=== PATIENT | female | born 1990 | race Caucasian/White ===

== ENCOUNTER → 2016-07-22 | Outpatient (CLI) | payer BC | LOC: MERGE 20:00 → RAD 20:30 | PROVIDERS: ATTEND Internal Medicine Endocrinology, Diabetes & Metabolism | DX: E22.1 Hyperprolactinemia (principal) | CPT/HCPCS: 70553; A9577 ==

== ENCOUNTER 2017-12-07 11:10 | Outpatient (CLI) | payer BC ==
[2017-12-07 12:15] LABS: ABSOLUTE EOSINOPHILS # (AUTO) 0.1 10^3/uL (0.0-0.6); ABSOLUTE LYMPHOCYTES (AUTO) 1.4 10^3/uL (0.5-4.7); ABSOLUTE MONOCYTES (AUTO) 0.6 10^3/uL (0.1-1.4); ABSOLUTE NEUT (AUTO) 6.8 10^3/uL (1.7-8.2); BASOPHILS % (AUTO) 0.2 % (0-2); HEMATOCRIT 29.3 % (36.0-47.0); HEMOGLOBIN 10.1 g/dL (12.0-15.5); LYMPHOCYTES % (AUTO) 16.1 % (13-45); MEAN CORPUSCULAR HEMOGLOBIN 30.5 pg (27.0-33.4); MEAN CORPUSCULAR HGB CONC 34.6 g/dL (32.0-36.0); MEAN CORPUSCULAR VOLUME 88 fl (80-97); MONOCYTES % (AUTO) 6.2 % (3-13); PLATELET COUNT 189 10^3/uL (150-450); RED BLOOD COUNT 3.32 10^6/uL (3.72-5.28); RED CELL DISTRIBUTION WIDTH 13.6 % (11.5-14.0); SEGMENTED NEUTROPHILS % (AUTO) 76.5 % (42-78); TOTAL CELLS COUNTED % (AUTO) 100 %; WHITE BLOOD COUNT 8.9 10^3/uL (4.0-10.5)
[2017-12-07 12:25] LABS: APPEARANCE,URINE CLOUDY; BILIRUBIN,URINE NEGATIVE (NEGATIVE); COLOR,URINE YELLOW; GLUCOSE, URINE NEGATIVE (NEGATIVE); KETONES,URINE NEGATIVE (NEGATIVE); LEUKOCYTE ESTERASE,URINE SMALL (NEGATIVE); NITRITE,URINE NEGATIVE (NEGATIVE); PROTEIN,URINE NEGATIVE (NEGATIVE); URIC ACID CRYSTALS,URINE MANY /HPF; URINE SPECIFIC GRAVITY 1.026; UROBILINOGEN,URINE NEGATIVE mg/dL (<2.0)
--- NOTE | 2017-12-07 12:27 | Non Stress Test Report ---
Non Stress Test Datetime Report Generated by CPN: 12/07/2017 12:27 DEMOGRAPHIC EGA NST: 36.3 EGA NST: 37.3 INDICATION Indication for Study: Ordered by Provider Indication for Study: Ordered by Provider Indication for Study (NST) Other: b/p check Indication for Study (NST) Other: PRE-E W/U MONITORING Monitor Explained: Monitor Explained; Test Explained; Patient Verbalized Understanding Monitor Explained: Monitor Explained; Test Explained; Patient Verbalized Understanding Time on Monitor: 11/30/2017 12:13 Time on Monitor: 12/07/2017 11:35 Time off Monitor: 12/07/2017 12:26 NST Duration: 51 NST INTERVENTIONS NST Interventions: PO Hydration; Reposition Patient NST Interventions: PO Hydration; Reposition Patient Physician Notified NST: Dr Glez Physician Notified NST: [place] BABY A: [id number] BABY A Movement : Present Movement : Present Contraction Frequency : rare Contraction Frequency : irr FHR Baseline : 145 FHR Baseline : 145 Accelerations : 15X15 Accelerations : 15X15 Decelerations : None Decelerations : None Variability : Moderate 6-25bpm Variability : Moderate 6-25bpm NST Review: Meets Criteria for Reactive NST NST Review: Meets Criteria for Reactive NST NST Review and Verified By : Nickie Lino RN NST Results: Reactive NST Results: Reactive NST REPORT Report Trigger: Send Report
[2017-12-07 12:40] LABS: UR PRO/CREAT RATIO RESULT 0.1 mg/mg (0.0-0.2); URINE CREATININE 164.7 mg/dL (16-327)
[2017-12-07 12:50] LABS: ALANINE AMINOTRANSFERASE 17 U/L (9-52); ALBUMIN 2.8 g/dL (3.5-5.0); ALKALINE PHOSPHATASE 109 U/L (38-126); ANION GAP 11 (5-19); ASPARTATE AMINO TRANSFERASE 14 U/L (14-36); BILIRUBIN,DIRECT 0.2 mg/dL (0.0-0.4); BILIRUBIN,TOTAL 0.3 mg/dL (0.2-1.3); BLOOD UREA NITROGEN 9 mg/dL (7-20); CALCIUM 9.4 mg/dL (8.4-10.2); CARBON DIOXIDE 22 mmol/L (22-30); CHLORIDE 105 mmol/L (98-107); GLUCOSE 109 mg/dL (75-110); POTASSIUM 3.4 mmol/L (3.6-5.0); SODIUM 137.9 mmol/L (137-145); TOTAL PROTEIN 5.6 g/dL (6.3-8.2); URIC ACID 3.7 mg/dL (2.5-6.2)
[2017-12-07 12:54] LABS: URINE AMPHETAMINES SCREEN NEGATIVE; URINE BARBITURATES SCREEN NEGATIVE; URINE BENZODIAZEPINES SCREEN NEGATIVE; URINE COCAINE SCREEN NEGATIVE; URINE MARIJUANA (THC) SCREEN NEGATIVE; URINE METHADONE SCREEN NEGATIVE; URINE PHENCYCLIDINE SCREEN NEGATIVE
== END 2017-12-07 13:48 | disposition home or self-care (01) ==
LOC: LC 11:10
PROVIDERS: ATTEND Obstetrics & Gynecology
PROC: 4A1HXCZ Monitoring of Products of Conception, Cardiac Rate, External Approach (ICD-10-PCS; principal; 2017-12-07)
DX: O16.3 Unspecified maternal hypertension, third trimester (principal); Z3A.37 37 weeks gestation of pregnancy
CPT/HCPCS: 36415; 59025; 80053; 80307; 81001; 82570; 83615; 84156; 84550; 85025

== ENCOUNTER 2017-12-18 00:45 | Outpatient (CLI) | payer BC ==
[2017-12-18 01:24] LABS: APPEARANCE,URINE CLEAR; BILIRUBIN,URINE NEGATIVE (NEGATIVE); COLOR,URINE YELLOW; GLUCOSE, URINE NEGATIVE (NEGATIVE); KETONES,URINE NEGATIVE (NEGATIVE); LEUKOCYTE ESTERASE,URINE NEGATIVE (NEGATIVE); NITRITE,URINE NEGATIVE (NEGATIVE); PROTEIN,URINE NEGATIVE (NEGATIVE); URINE SPECIFIC GRAVITY 1.018
[2017-12-18 01:39] LABS: URINE AMPHETAMINES SCREEN NEGATIVE; URINE BARBITURATES SCREEN NEGATIVE; URINE BENZODIAZEPINES SCREEN NEGATIVE; URINE COCAINE SCREEN NEGATIVE; URINE MARIJUANA (THC) SCREEN NEGATIVE; URINE METHADONE SCREEN NEGATIVE; URINE PHENCYCLIDINE SCREEN NEGATIVE
[2017-12-18] MEDS ORDERED: ONDANSETRON HCL 8 MG TABLET ONE (01:43)
--- NOTE | 2017-12-18 02:17 | Non Stress Test Report ---
Non Stress Test Datetime Report Generated by CPN: 12/18/2017 02:17 DEMOGRAPHIC EGA NST: 39.0 INDICATION Indication for Study: Ordered by Provider; Other Indication for Study (NST) Other: Dr. Cano-Waqas URINE RESULTS Urine Protein, NST: Negative Urine Ketones - NST: Negative Urine Glucose - NST: Negative Urine Blood - NST: Negative MONITORING Monitor Explained: Monitor Explained; Test Explained; Patient Verbalized Understanding Time on Monitor: 12/18/2017 01:13 Time off Monitor: 12/18/2017 01:45 NST Duration: 32 NST INTERVENTIONS NST Interventions: PO Hydration Physician Notified NST: LC BABY A: [id number] BABY A Movement : Present Contraction Frequency : none FHR Baseline : 145 Accelerations : 15X15 Decelerations : None Variability : Moderate 6-25bpm NST Review: Meets Criteria for Reactive NST NST Review and Verified By : yfn oquendo NST Results: Reactive NST REPORT Report Trigger: Send Report
== END 2017-12-18 02:00 | disposition home or self-care (01) ==
LOC: LC 00:45
PROVIDERS: ATTEND Obstetrics & Gynecology
PROC: 4A1HXCZ Monitoring of Products of Conception, Cardiac Rate, External Approach (ICD-10-PCS; principal; 2017-12-18)
DX: O47.1 False labor at or after 37 completed weeks of gestation (principal); Z3A.39 39 weeks gestation of pregnancy
CPT/HCPCS: 59025; 81005; 80307; 84112; S0119

== ENCOUNTER 2017-12-21 06:57 | Inpatient (IN) | payer BC ==
[2017-12-20 13:30] LABS: APPEARANCE,URINE CLOUDY; BILIRUBIN,URINE NEGATIVE (NEGATIVE); COLOR,URINE YELLOW; GLUCOSE, URINE NEGATIVE (NEGATIVE); KETONES,URINE NEGATIVE (NEGATIVE); LEUKOCYTE ESTERASE,URINE NEGATIVE (NEGATIVE); NITRITE,URINE NEGATIVE (NEGATIVE); PROTEIN,URINE NEGATIVE (NEGATIVE); URINE SPECIFIC GRAVITY 1.006; UROBILINOGEN,URINE NEGATIVE mg/dL (<2.0)
[2017-12-20 13:31] LABS: ABSOLUTE EOSINOPHILS # (AUTO) 0.1 10^3/uL (0.0-0.6); ABSOLUTE LYMPHOCYTES (AUTO) 1.5 10^3/uL (0.5-4.7); ABSOLUTE MONOCYTES (AUTO) 0.5 10^3/uL (0.1-1.4); ABSOLUTE NEUT (AUTO) 4.8 10^3/uL (1.7-8.2); BASOPHILS % (AUTO) 0.4 % (0-2); EOSINOPHILS % (AUTO) 0.9 % (0-6); HEMATOCRIT 33.3 % (36.0-47.0); HEMOGLOBIN 11.2 g/dL (12.0-15.5); LYMPHOCYTES % (AUTO) 21.3 % (13-45); MEAN CORPUSCULAR HEMOGLOBIN 29.4 pg (27.0-33.4); MEAN CORPUSCULAR HGB CONC 33.7 g/dL (32.0-36.0); MEAN CORPUSCULAR VOLUME 87 fl (80-97); MONOCYTES % (AUTO) 6.8 % (3-13); PLATELET COUNT 196 10^3/uL (150-450); RED BLOOD COUNT 3.81 10^6/uL (3.72-5.28); SEGMENTED NEUTROPHILS % (AUTO) 70.6 % (42-78); TOTAL CELLS COUNTED % (AUTO) 100 %; WHITE BLOOD COUNT 6.9 10^3/uL (4.0-10.5)
[2017-12-20 14:01] LABS: URINE AMPHETAMINES SCREEN NEGATIVE; URINE BARBITURATES SCREEN NEGATIVE; URINE BENZODIAZEPINES SCREEN NEGATIVE; URINE COCAINE SCREEN NEGATIVE; URINE MARIJUANA (THC) SCREEN NEGATIVE; URINE METHADONE SCREEN NEGATIVE; URINE PHENCYCLIDINE SCREEN NEGATIVE
--- NOTE | 2017-12-20 23:15 | EKG REPORT ---
SEVERITY:- NORMAL ECG - SINUS RHYTHM : Confirmed by: Sarah Chauhan 20-Dec-2017 23:13:55
[~2017-12-21 06:57] MED LIST: CEFAZOLIN 2 GM/D5W RTU 2 GM/50 ML RTUPB IV SCH
[2017-12-21] MEDS ORDERED: RINGERS SOLUTION,LACTATED 1,000 ML IV ONE (08:45)
[2017-12-21] MEDS ORDERED: CEFAZOLIN 2 GM/D5W RTU 2 GM/50 ML RTUPB IV ONE (09:18)
[2017-12-21] MEDS ORDERED: OXYTOCIN 10 UNIT/ML VIAL ONE (09:29)
[2017-12-21] MEDS ORDERED: BUPIVACAINE HCL/DEX-WATER/PF 15 MG/2 ML AMPULE ONE (09:46)
[2017-12-21] MEDS ORDERED: MORPHINE SULFATE 10 MG/ML INJ IV PRN (10:31)
[2017-12-21] MEDS ORDERED: PROMETHAZINE HCL INJ 25 MG/1 ML VIAL IV PRN ×2 (10:31→10:52)
[2017-12-21] MEDS ORDERED: MEPERIDINE HCL/PF INJ 25 MG/1 ML DISP.SYRIN IV PRN (10:31)
[2017-12-21] MEDS ORDERED: FENTANYL CITRATE INJ/PF 100 MCG/2 ML AMPUL IV PRN ×3 (10:31)
[2017-12-21] MEDS ORDERED: DIPHENHYDRAMINE HCL 50 MG/ML VIAL IV PRN (10:31)
[2017-12-21] MEDS ORDERED: ONDANSETRON HCL INJ/PF 4 MG/2 ML SDV IV PRN (10:31)
--- NOTE | 2017-12-21 10:48 | PDOC DELIVERY SUMMARY ---
Delivery Summary - Maternal Hx : III Hx # Term Pregnancies: 1 Hx # Pregnancies: 1 JAMILA: 12/22/17 Gestational Age: 39 Ruptured Membranes: AROM Time of Rupture: 10:09 Fluids: Clear - Delivery Presentation: Vertex Heart Rate Monitoring: Done Pre-Operatively Support Person Present: Yes Location: OR : Scheduled Placenta: Within Normal Limits Delivery of Placenta Date: 12/21/17 Delivery of Placenta Time: 10:11 - Medications Type of Anesthesia:: Spinal - Assess and Care Male Delivery of Date: 12/21/17 Delivery of Infant Time: 10:10 at 1 minute: 9 at 5 minutes: 9 Preprinted Number On Band: [id number] Infant Skin to Skin: Yes Skin to Skin (Mins): 6 To Nursery At: 10:23 Mode of Transport: Bassinet Delivery Weight: 3,350 Infant Delivery Length: 20.5 in - Delivery Personnel Nursery RN: CLINTON DAVIS RN: SALMA OAKES MD: CHARLI MARCUM
[2017-12-21] MEDS ORDERED: EPHEDRINE SULFATE INJ 50 MG/1 ML AMPULE ONE (10:50)
--- NOTE | 2017-12-21 10:51 | Operative Report ---
Operative Report DATE OF SURGERY: 12/21/17 PREOPERATIVE DIAGNOSIS: Patient desires a repeat and tubal ligation POSTOPERATIVE DIAGNOSIS: Same OPERATION: Repeat via low transverse uterine incision rivera with Filshie clips SURGEON: CHARLI MARCUM ANESTHESIA: Spinal TISSUE REMOVED OR ALTERED: Placenta COMPLICATIONS: None ESTIMATED BLOOD LOSS: 250 cc INTRAOPERATIVE FINDINGS: Viable male infant, normal tubes and ovaries PROCEDURE: Patient was taken to the OR and placed in supine position after her spinal anesthesia. She is prepared and draped in sterile fashion. Rene was placed for drainage of the bladder. Low transverse incision was made excising the old scar and carried down the level of the fascia. The fascial incision was made with knife and extended bilaterally with curved Lin scissors. The fascia was off the rectus muscles using sharp and blunt dissection. The rectus muscles are in the midline. The peritoneum was entered without incident. Bladder blade was placed in uterine segment was identified. A low transverse incision was made creating a bladder flap. Bladder blade was placed low transverse uterine incision was made with the knife and extended with fingertips. The baby was delivered with some fundal pressure. Double nuchal cord noted. Mouth and nose were suctioned free. The cord is doubly clamped and cut. Baby is passed off to the media arts professor in attendance. The placenta was manually extracted with trailing membranes. The uterus was externalized wrapped in a moist lap sponge. Uterine contents wiped free. Uterus was closed with a running locking layer of 0 chromic suture using the second layer to imbricate the first completing a double layer closure of the uterus. The serosa was closed with a running 2-0 chromic stitch. Each fallopian tube was identified by its fimbriated end and Filshie clip placed at the mid isthmic portion. The pelvis was irrigated and suctioned free of fluid the uterus was replaced in the abdomen. The abdominal wall peritoneum was closed with running 2-0 chromic stitch. Fascia was closed with a running 0 Vicryl in 2 segments. Steven's layer was brought together with 0 plain gut stitch and the skin was closed with running subcuticular 4-0 undyed Vicryl stitch. Skin coco were placed to reinforce the incision. The wound was dressed mother and baby did well.
[2017-12-21] MEDS ORDERED: SIMETHICONE 80 MG TAB.CHEW PO PRN (10:52)
[2017-12-21] MEDS ORDERED: ACETAMINOPHEN 325 MG TABLET PO PRN (10:52)
[2017-12-21] MEDS ORDERED: OXYTOCIN/NORMAL SALINE 20 UNIT/1,000 ML RTUINJ IV PRN (10:52)
[2017-12-21] MEDS ORDERED: MEASLES,MUMPS&RUBELLA VACC/PF 0.5 ML VIAL SUBCUT PRN (10:52)
[2017-12-21] MEDS ORDERED: OXYCODONE-ACETAMINOPHEN 5-325 MG TABLET PO PRN (10:52)
[2017-12-21] MEDS ORDERED: DIPH/PERTUSS(ACELL)/TETANUS VAC/PF 0.5 ML SYR (>=10YO) IM PRN (10:52)
[2017-12-21] MEDS ORDERED: PROMETHAZINE HCL INJ 25 MG/1 ML VIAL ONE (11:07)
[2017-12-21] MEDS ORDERED: ACETAMINOPHEN 1,000 MG/100 ML RTUPB IV ONE (11:33)
[2017-12-21] MEDS ORDERED: MORPHINE SULFATE 10 MG/ML INJ ONE (11:33)
[2017-12-21] MEDS ORDERED: IBUPROFEN 800 MG TABLET PO SCH (12:00)
[2017-12-21] MEDS ORDERED: HYDROMORPHONE HCL INJ/PF 2 MG/ML AMPULE ONE (12:02)
[2017-12-21] MEDS: HYDROMORPHONE HCL INJ/PF 2 MG/ML AMPULE IV PRN ×3 (12:04→20:53)
[2017-12-21] MEDS: RINGERS SOLUTION,LACTATED 1,000 ML IV PRN ×2 (12:46→20:53)
[2017-12-21] MEDS: KETOROLAC TROMETHAMINE INJ/PF 30 MG/1 ML SDV IV SCH ×2 (13:45→22:17)
[2017-12-21] MEDS: OXYCODONE-ACETAMINOPHEN 5-325 MG TABLET PO PRN ×2 (17:46→22:53)
[2017-12-21] MEDS: DOCUSATE SODIUM 100 MG CAPSULE PO SCH (17:47)
--- NOTE | 2017-12-21 18:29 | EKG REPORT ---
SEVERITY:- NORMAL ECG - SINUS RHYTHM : Confirmed by: Sarah Chauhan 21-Dec-2017 18:29:22
[2017-12-21] MEDS ORDERED: METOCLOPRAMIDE HCL 10 MG TABLET PO PRN (19:14)
[2017-12-21] MEDS ORDERED: PHENYLEPHRINE HCL INJ/PF 10 MG/1 ML SDV ONE (22:49)
[2017-12-21] MEDS ORDERED: ONDANSETRON HCL INJ/PF 4 MG/2 ML SDV ONE (22:49)
[2017-12-21] MEDS ORDERED: METOCLOPRAMIDE HCL INJ/PF 10 MG/2 ML SDV ONE (22:49)
[2017-12-22] MEDS: OXYCODONE-ACETAMINOPHEN 5-325 MG TABLET PO PRN ×5 (03:55→21:17)
[2017-12-22] MEDS ORDERED: LACTATED RINGERS 1000 ML IV PRN (05:00)
[2017-12-22] MEDS ORDERED: LIDOCAINE 0.5% INJ-PF (5 MG/ML) 50 ML SDV SUBCUT PRN (05:00)
[2017-12-22] MEDS: KETOROLAC TROMETHAMINE INJ/PF 30 MG/1 ML SDV IV SCH (05:49)
[2017-12-22 06:33] LABS: HEMATOCRIT 29.8 % (36.0-47.0); HEMOGLOBIN 10.1 g/dL (12.0-15.5); MEAN CORPUSCULAR HEMOGLOBIN 30.3 pg (27.0-33.4); MEAN CORPUSCULAR HGB CONC 33.9 g/dL (32.0-36.0); MEAN CORPUSCULAR VOLUME 89 fl (80-97); PLATELET COUNT 149 10^3/uL (150-450); RED BLOOD COUNT 3.34 10^6/uL (3.72-5.28); RED CELL DISTRIBUTION WIDTH 14.6 % (11.5-14.0); WHITE BLOOD COUNT 7.6 10^3/uL (4.0-10.5)
--- NOTE | 2017-12-22 09:35 | PDOC PROGRESS REPORT ---
Subjective-OB Progress Note for:: 12/22/17 Subjective: Pt doing well, no concerns. She reports light bleeding, reg diet and +flatus today. She has no difficulty voiding and is ambulatory. Physical Exam (OB) Vital Signs: Temp Pulse Resp BP Pulse Ox 97.7 F 80 18 110/59 L 98 12/22/17 08:00 12/22/17 08:00 12/22/17 08:00 12/22/17 08:00 12/22/17 08:00 Intake & Output 12/21/17 12/22/17 12/23/17 06:59 06:59 06:59 Intake Total 3260 Output Total 2250 Balance 1010 Weight 89.81 kg 89.81 kg - PIH/Pre-Eclampsia Headache: Absent - Dressing Removed: Yes - opsite Incision: Dressing - Bilateral Tubal Ligation Dressing Removed: No Site: Dressing - Lochia Lochia Amount: Scant < 10 ml Lochia Color: Rubra/Red - Abdomen Description: Tender, Soft Hernia Present: No Fundal Description: Firm, Midline Fundal Height: u/u - u/2 Objective-Diagnostic Laboratory: 12/22/17 06:02 12/22/17 06:02 WBC 7.6 RBC 3.34 L Hgb 10.1 L Hct 29.8 L MCV 89 MCH 30.3 MCHC 33.9 RDW 14.6 H Plt Count 149 L Assessment and Plan(PN) - Assessment and Plan (1) Status post delivery Is this a current diagnosis for this admission?: Yes - Time Spent with Patient Time with patient: Less than 15 minutes Smoking Education Provided: Over 3 minutes Medications reviewed and adjusted accordingly: Yes - Disposition Anticipated Discharge: Home Within: within 24 hours
[2017-12-22] MEDS: PRENATAL VITAMIN W DHA CAPSULE PO SCH (10:11)
[2017-12-22] MEDS: DOCUSATE SODIUM 100 MG CAPSULE PO SCH ×2 (10:12→17:11)
[2017-12-22] MEDS: ONDANSETRON 4 MG TAB.RAPDIS PO PRN (11:25)
[2017-12-22] MEDS: IBUPROFEN 800 MG TABLET PO SCH ×3 (11:26→23:15)
[2017-12-22] MEDS ORDERED: ZOLPIDEM TARTRATE 5 MG TABLET ONE (21:30)
[2017-12-22] MEDS: ZOLPIDEM TARTRATE 5 MG TABLET PO PRN (22:09)
[2017-12-23] MEDS: OXYCODONE-ACETAMINOPHEN 5-325 MG TABLET PO PRN ×6 (01:17→23:07)
[2017-12-23] MEDS: IBUPROFEN 800 MG TABLET PO SCH ×4 (05:20→23:07)
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
[2017-12-23] MEDS: DOCUSATE SODIUM 100 MG CAPSULE PO SCH ×2 (10:20→17:37)
[2017-12-23] MEDS: PRENATAL VITAMIN W DHA CAPSULE PO SCH (10:20)
[2017-12-23] MEDS: FUROSEMIDE 40 MG TABLET PO SCH (11:18)
[2017-12-23] MEDS: ONDANSETRON 4 MG TAB.RAPDIS PO PRN (15:14)
[2017-12-23] MEDS: ZOLPIDEM TARTRATE 5 MG TABLET PO PRN (21:12)
[2017-12-24] MEDS: IBUPROFEN 800 MG TABLET PO SCH ×4 (05:39→23:51)
[2017-12-24] MEDS: OXYCODONE-ACETAMINOPHEN 5-325 MG TABLET PO PRN ×4 (05:42→18:47)
--- NOTE | 2017-12-24 08:30 | PDOC PROGRESS REPORT ---
Subjective-OB Progress Note for:: 12/24/17 Subjective: Pt doing well, no concern. Pt reports light bleeding, reg diet, +flatus and is voiding without difficulty. Physical Exam (OB) Vital Signs: Temp Pulse Resp BP Pulse Ox 97.4 F 98 17 120/85 99 12/24/17 04:33 12/24/17 04:33 12/24/17 04:33 12/24/17 04:33 12/24/17 04:33 Intake & Output 12/23/17 12/24/17 12/25/17 06:59 06:59 06:59 Intake Total 3260 1600 Balance 3260 1600 - PIH/Pre-Eclampsia DTR's: 1 + Clonus: Negative Headache: Absent Epigastric Pain: No Visual Changes: No - Dressing Removed: - opsite Incision: Dressing Closure Type: Opsite - Bilateral Tubal Ligation Dressing Removed: No Site: Dressing - Lochia Lochia Amount: Small 10-25 ml Lochia Color: Rubra/Red - Abdomen Description: Tender, Soft, Round Hernia Present: No Fundal Description: Firm, Midline Fundal Height: u/u - u/2 Objective-Diagnostic Laboratory: 12/22/17 06:02 Assessment and Plan(PN) - Assessment and Plan (1) Status post delivery Is this a current diagnosis for this admission?: Yes - Time Spent with Patient Time with patient: Less than 15 minutes Smoking Education Provided: Over 3 minutes Medications reviewed and adjusted accordingly: Yes - Disposition Anticipated Discharge: Home Within: within 24 hours
--- NOTE | 2017-12-24 08:31 | PDOC DISCHARGE SUMMARY ---
Final Diagnosis Discharge Date: 12/24/17 - Final Diagnosis (1) Status post delivery Is this a current diagnosis for this admission?: Yes Discharge Data - Discharge Medication Home Medications: Vit No.129/Iron/Folic [ One Daily Tablet] 1 tab PO DAILY Metoclopramide HCl [Reglan] 10 mg PO QID 12/18/17 Ondansetron [Zofran Odt] 8 mg PO PRN PRN 12/18/17 Buspirone HCl 1 tab PO ASDIR PRN 12/20/17 Prozasin 2 mg PO DAILY 12/20/17 Reason(s) for Admission: Ceasarean Section-Repeat Procedures: None Intrapartum Procedure(s): : Low Cervical, Transverse - Diagnosis Test Laboratory: Temp Pulse Resp BP Pulse Ox 97.4 F 98 17 120/85 99 12/24/17 04:33 12/24/17 04:33 12/24/17 04:33 12/24/17 04:33 12/24/17 04:33 12/20/17 12/20/17 12/22/17 12:25 12:35 06:02 RBC 3.81 3.34 L Hgb 11.2 L 10.1 L Hct 33.3 L 29.8 L Urine Opiates Screen NEGATIVE - Discharge information/Instructions Discharge Activity: Balance Activity w/Rest, No Lifting Over 10 Pounds, No Lifting/Push/Pulling, Pelvic Rest Discharge Diet: Regular Disposition: HOME, SELF-CARE Follow up with: [facility] in: 4, Days
[2017-12-24] MEDS: PRENATAL VITAMIN W DHA CAPSULE PO SCH (10:14)
[2017-12-24] MEDS: DOCUSATE SODIUM 100 MG CAPSULE PO SCH ×2 (10:14→17:43)
[2017-12-24] MEDS: FUROSEMIDE 40 MG TABLET PO SCH (10:15)
[2017-12-24] MEDS: ZOLPIDEM TARTRATE 5 MG TABLET PO PRN (22:00)
[2017-12-25] MEDS: OXYCODONE-ACETAMINOPHEN 5-325 MG TABLET PO PRN ×4 (00:01→13:13)
[2017-12-25] MEDS: IBUPROFEN 800 MG TABLET PO SCH ×2 (06:34→13:12)
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
[2017-12-25] MEDS: PRENATAL VITAMIN W DHA CAPSULE PO SCH (10:08)
[2017-12-25] MEDS: DOCUSATE SODIUM 100 MG CAPSULE PO SCH (10:08)
[2017-12-25] MEDS ORDERED: HYDROCODONE/ACETAMINOPHEN 5-325 MG (6 TAB/ER DISP) PO PRN (11:08)
[2017-12-25 13:25] VITALS: BP 132/81
== END 2017-12-25 13:46 | disposition home or self-care (01) | DRG 765 ==
LOC: 2S 06:57
PROVIDERS: ADMIT Obstetrics & Gynecology; ATTEND Obstetrics & Gynecology
PROC: 0UL70CZ Occlusion of Bilateral Fallopian Tubes with Extraluminal Device, Open Approach (ICD-10-PCS; 2017-12-21)
PROC: 10D00Z1 Extraction of Products of Conception, Low, Open Approach (ICD-10-PCS; principal; 2017-12-21 09:45)
DX: O34.211 Maternal care for low transverse scar from previous cesarean delivery (principal); O99.354 Diseases of the nervous system complicating childbirth; O99.824 Streptococcus B carrier state complicating childbirth; O16.4 Unspecified maternal hypertension, complicating childbirth; O69.81X0 Labor and delivery complicated by cord around neck, without compression, not applicable or unspecified; O99.284 Endocrine, nutritional and metabolic diseases complicating childbirth; O99.334 Smoking (tobacco) complicating childbirth; O90.81 Anemia of the puerperium; G35 Multiple sclerosis; E07.9 Disorder of thyroid, unspecified; D64.9 Anemia, unspecified; N85.8 Other specified noninflammatory disorders of uterus; F17.210 Nicotine dependence, cigarettes, uncomplicated; Z3A.39 39 weeks gestation of pregnancy; Z37.0 Single live birth; Z30.2 Encounter for sterilization; Z87.820 Personal history of traumatic brain injury
CPT/HCPCS: 1961; 36415; 59025; 80307; 81001; 85025; 85027; 86850; 86900; 86901; 93005; 93010; 94799; J0131; J0690; J1170; J1885; J2270; J2370; J2405; J2550; J2590; J2765; J3490; S0119

== ENCOUNTER 2018-01-21 11:36 | Emergency (ER) | payer BC, MEDICAID ==
[2018-01-21] MEDS ORDERED: NORMAL SALINE 1000 ML 1,000 ML IV ONE (11:50)
[2018-01-21] MEDS ORDERED: ONDANSETRON HCL INJ/PF 4 MG/2 ML SDV IV ONE (11:51)
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
[2018-01-21 12:20] LABS: ABSOLUTE EOSINOPHILS # (AUTO) 0.1 10^3/uL (0.0-0.6); ABSOLUTE LYMPHOCYTES (AUTO) 1.9 10^3/uL (0.5-4.7); ABSOLUTE MONOCYTES (AUTO) 0.7 10^3/uL (0.1-1.4); ABSOLUTE NEUT (AUTO) 9.7 10^3/uL (1.7-8.2); BASOPHILS % (AUTO) 0.3 % (0-2); EOSINOPHILS % (AUTO) 0.4 % (0-6); HEMATOCRIT 44.2 % (36.0-47.0); HEMOGLOBIN 14.7 g/dL (12.0-15.5); LYMPHOCYTES % (AUTO) 15.4 % (13-45); MEAN CORPUSCULAR HEMOGLOBIN 28.9 pg (27.0-33.4); MEAN CORPUSCULAR HGB CONC 33.3 g/dL (32.0-36.0); MEAN CORPUSCULAR VOLUME 87 fl (80-97); MONOCYTES % (AUTO) 5.3 % (3-13); PLATELET COUNT 410 10^3/uL (150-450); RED BLOOD COUNT 5.08 10^6/uL (3.72-5.28); RED CELL DISTRIBUTION WIDTH 14.6 % (11.5-14.0); SEGMENTED NEUTROPHILS % (AUTO) 78.6 % (42-78); TOTAL CELLS COUNTED % (AUTO) 100 %; WHITE BLOOD COUNT 12.3 10^3/uL (4.0-10.5)
[2018-01-21] MEDS ORDERED: METOCLOPRAMIDE HCL INJ/PF 10 MG/2 ML SDV IV ONE (12:37)
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
[2018-01-21 12:42] LABS: ALANINE AMINOTRANSFERASE 33 U/L (9-52); ALKALINE PHOSPHATASE 110 U/L (38-126); ANION GAP 13 (5-19); ASPARTATE AMINO TRANSFERASE 29 U/L (14-36); BILIRUBIN,DIRECT 0.3 mg/dL (0.0-0.4); BILIRUBIN,TOTAL 0.8 mg/dL (0.2-1.3); BLOOD UREA NITROGEN 9 mg/dL (7-20); CALCIUM 10.5 mg/dL (8.4-10.2); CARBON DIOXIDE 29 mmol/L (22-30); CHLORIDE 100 mmol/L (98-107); GLUCOSE 93 mg/dL (75-110); POTASSIUM 4.8 mmol/L (3.6-5.0); SODIUM 141.7 mmol/L (137-145); TOTAL PROTEIN 8.5 g/dL (6.3-8.2)
[2018-01-21 14:15] VITALS: BP 126/78
== END 2018-01-21 14:14 | disposition home or self-care (01) ==
LOC: ER 11:36
DX: R11.2 Nausea with vomiting, unspecified (principal); R19.7 Diarrhea, unspecified; I10 Essential (primary) hypertension
CPT/HCPCS: 99284; 96361; 96374; 96375; 36415; 83690; 85025; 80053; J2765; J2405; J7030

== ENCOUNTER 2019-04-27 09:22 | Emergency (ER) | payer BC, MEDICAID ==
[2019-04-27] MEDS ORDERED: FAMOTIDINE INJ/PF 20 MG/2 ML SDV IV ONE (11:36)
[2019-04-27] MEDS ORDERED: METHYLPREDNISOLONE INJ 125 MG/2 ML SDV IV ONE (11:36)
[2019-04-27] MEDS ORDERED: METOCLOPRAMIDE HCL INJ/PF 10 MG/2 ML SDV IV ONE (12:16)
[2019-04-27] MEDS ORDERED: KETOROLAC TROMETHAMINE 0.45% 4 DROP/0.4 ML DROPERETTE OU ONE (13:47)
[2019-04-27 15:07] VITALS: BP 101/72
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
== END 2019-04-27 17:00 | disposition home or self-care (01) ==
LOC: ER 09:22
DX: H20.9 Unspecified iridocyclitis (principal); H57.89 Other specified disorders of eye and adnexa; H57.13 Ocular pain, bilateral; I10 Essential (primary) hypertension; Z87.891 Personal history of nicotine dependence
CPT/HCPCS: 99283; 96374; 96375; J2930; J2765; S0028